=== PATIENT | male | born 1995 ===

== ENCOUNTER 2021-01-31 17:04 | Emergency (ER) | payer SELFPAY ==
[~2021-01-31] VITALS: Ht 165.1 cm; Wt 47.6 kg
[2021-01-31 17:04] VITALS: BP 147/88
== END 2021-01-31 20:52 | disposition left against medical advice (07) ==
LOC: ER 17:04
DX: R51.9 Headache, unspecified (principal); H57.13 Ocular pain, bilateral; Z53.21 Procedure and treatment not carried out due to patient leaving prior to being seen by health care provider